=== PATIENT | male | born 1955 | race Caucasian/White ===

== ENCOUNTER 2019-04-24 12:00 | Outpatient (CLI) | payer MEDICAID, SELFPAY ==
--- NOTE | 2019-04-24 12:14 | CT_ITS ---
WS: [id number] CT ABDOMEN WITH CONTRAST HISTORY: WEIGHT LOSS/ELEVATED LIVER ENZYMES Contiguous single phase 5 mm axial imaging performed to the abdomen. Oral contrast has not been provi ded. Coronal and sagittal reformats are submitted. All CT scans at [facility] use at leas t one of these dose optimization techniques: automated exposure control; mA and/or kV adjustment per patient size (includes targeted exams where dose is matched to clinical indication); or iterative rec onstruction. CONTRAST: Omnipaque 300; 95 mL IV. DLP: 754.05 mGycm COMPARISON: 04/15/2016 Lower thorax: Marked emphysema at the lung bases. No pleural effusion. Heart size is normal. Small hi atal hernia. Liver: Again noted is a 9 mm hypodensity in the LEFT lobe of the liver which has been present on prio r studies. No metastatic lesions are identified. Gallbladder: Normal. Pancreas: Normal. Spleen: Normal size spleen with granulomata. Adrenals: Normal. Right kidney: Partial nephrectomy involving the RIGHT upper lobe. No recurrent mass or adenopathy. Left kidney: Stable hypodensity in the upper pole measures 8 mm. No solid mass or obstruction. Aorta: Mild atherosclerosis with no aneurysm. GI tract: GI tract within the abdomen is negative for acute obstruction or process. Postsurgical sutu res are noted in the proximal small bowel. Several small bowel loops are top normal size with no obst ruction. Previously described mass in the LEFT abdomen adjacent to the small bowel is no longer prese nt. No adenopathy or free fluid. Abdominal wall: No hernia. Visualized osseous structures: Degenerative disc disease at L5-S1. CT/CT abdomen w con* [id number] IMPRESSION: 1. Stable 8 mm hypodense nodule in the LEFT lobe of the liver over multiple pr ior examinations. 2. No bile duct dilatation. 3. Splenic granulomata. 4. Stable postsurgical changes upper pole RIGHT kidney.
[2019-04-24] MEDS: iohexol 300 mg/mL 100 mL Btl IV (12:52)
== END 2019-04-24 12:01 | disposition home or self-care (01) ==
LOC: RADWPI 12:07
PROVIDERS: Family Provider Internal Medicine; PCP Internal Medicine; Visit Provider Internal Medicine
DX: R63.4 Abnormal weight loss (principal); R74.8 Abnormal levels of other serum enzymes
CPT/HCPCS: 74160; Q9967

== ENCOUNTER → 2019-05-01 08:00 | Outpatient (BNVA) | payer MEDICAID, SELFPAY | PROVIDERS: Family Provider Internal Medicine; PCP Internal Medicine; Visit Provider Anesthesiology | DX: M47.27 Other spondylosis with radiculopathy, lumbosacral region (principal); M51.36 Other intervertebral disc degeneration, lumbar region; M47.896 Other spondylosis, lumbar region; M25.551 Pain in right hip; M50.30 Other cervical disc degeneration, unspecified cervical region; M47.892 Other spondylosis, cervical region; M25.511 Pain in right shoulder; F17.210 Nicotine dependence, cigarettes, uncomplicated; Z79.891 Long term (current) use of opiate analgesic | CPT/HCPCS: 99214 ==

== ENCOUNTER → 2019-09-05 09:30 | Outpatient (BNVA) | payer MEDICAID, SELFPAY | PROVIDERS: Family Provider Internal Medicine; PCP Internal Medicine; Visit Provider Nurse Practitioner | DX: M54.41 Lumbago with sciatica, right side (principal); M54.2 Cervicalgia; F17.210 Nicotine dependence, cigarettes, uncomplicated; Z79.891 Long term (current) use of opiate analgesic | CPT/HCPCS: 99213 ==

== ENCOUNTER 2019-09-18 13:01 | Outpatient (CLI) | payer MEDICAID, SELFPAY ==
--- NOTE | 2019-09-18 13:05 | CT_ITS ---
WS: [id number] LDCT LUNG CANCER SCREENING TECHNIQUE: Noncontrast CT of the chest with coronal and sagittal reformatted images. CLINICAL INFORMATION: NICOTINE DEPENDENCE COMPARISON: None. DLP: 94.92 mGy.cm DIvol: 2.[address] scans at [facility] use at least one of these dose optimization techniques: automat ed exposure control; mA and/or kV adjustment per patient size (includes targeted exams where dose is matched to clinical indication); or iterative reconstruction. FINDINGS: Nodular fibrosis in the lung apices. Moderate chronic emphysematous changes. A few calcified granulom as. No pulmonary nodules. No acute infiltrates. No pleural fluid. No mediastinal or hilar lymphadenop athy. Normal endobronchial tree. Adrenal glands are normal. Splenic granulomas. Small esophageal hiatal hernia. CT/CT lung screening [id number] IMPRESSION: LUNG-RADS: 1-Negative FOLLOW UP: 12 Month: Continue annual screening with LDCT
== END 2019-09-18 13:02 | disposition home or self-care (01) ==
LOC: RAD 13:02
PROVIDERS: Family Provider Internal Medicine; PCP Internal Medicine; Visit Provider Internal Medicine
DX: Z12.2 Encounter for screening for malignant neoplasm of respiratory organs (principal); F17.218 Nicotine dependence, cigarettes, with other nicotine-induced disorders
CPT/HCPCS: G0297

== ENCOUNTER → 2019-11-15 08:30 | Outpatient (BNVA) | payer MEDICAID, SELFPAY | PROVIDERS: Family Provider Internal Medicine; PCP Internal Medicine; Visit Provider Anesthesiology | DX: M54.42 Lumbago with sciatica, left side (principal); M54.41 Lumbago with sciatica, right side; M47.896 Other spondylosis, lumbar region; M51.36 Other intervertebral disc degeneration, lumbar region; M47.27 Other spondylosis with radiculopathy, lumbosacral region; M47.892 Other spondylosis, cervical region; M50.30 Other cervical disc degeneration, unspecified cervical region; F17.210 Nicotine dependence, cigarettes, uncomplicated; Z79.891 Long term (current) use of opiate analgesic | CPT/HCPCS: 99214 ==

== ENCOUNTER → 2020-01-21 08:28 | Outpatient (BNVA) | payer MEDICAID, SELFPAY | PROVIDERS: Family Provider Internal Medicine; PCP Internal Medicine; Visit Provider Anesthesiology | DX: M47.896 Other spondylosis, lumbar region (principal); M51.36 Other intervertebral disc degeneration, lumbar region; M47.27 Other spondylosis with radiculopathy, lumbosacral region; M47.892 Other spondylosis, cervical region; M50.30 Other cervical disc degeneration, unspecified cervical region; F17.210 Nicotine dependence, cigarettes, uncomplicated; Z79.891 Long term (current) use of opiate analgesic | CPT/HCPCS: 99214 ==

== ENCOUNTER → 2020-03-24 08:05 | Outpatient (BNVA) | payer MEDICAID, SELFPAY | PROVIDERS: Family Provider Internal Medicine; PCP Internal Medicine; Visit Provider Anesthesiology | DX: M47.896 Other spondylosis, lumbar region (principal); M51.36 Other intervertebral disc degeneration, lumbar region; M47.27 Other spondylosis with radiculopathy, lumbosacral region; M47.892 Other spondylosis, cervical region; M50.30 Other cervical disc degeneration, unspecified cervical region; F17.210 Nicotine dependence, cigarettes, uncomplicated; Z79.891 Long term (current) use of opiate analgesic | CPT/HCPCS: 99214 ==

== ENCOUNTER → 2020-05-19 08:04 | Outpatient (BNVA) | payer MEDICAID, SELFPAY | PROVIDERS: Family Provider Internal Medicine; PCP Internal Medicine; Visit Provider Anesthesiology | DX: G89.29 Other chronic pain (principal); M51.36 Other intervertebral disc degeneration, lumbar region; M47.896 Other spondylosis, lumbar region; M47.27 Other spondylosis with radiculopathy, lumbosacral region; M47.892 Other spondylosis, cervical region; M50.30 Other cervical disc degeneration, unspecified cervical region; F17.210 Nicotine dependence, cigarettes, uncomplicated; Z79.891 Long term (current) use of opiate analgesic | CPT/HCPCS: 99214 ==

== ENCOUNTER → 2020-07-16 08:35 | Outpatient (BNVA) | payer MEDICAID, SELFPAY | PROVIDERS: Family Provider Internal Medicine; PCP Internal Medicine; Visit Provider Anesthesiology | DX: G89.29 Other chronic pain (principal); M47.892 Other spondylosis, cervical region; M50.30 Other cervical disc degeneration, unspecified cervical region; M47.896 Other spondylosis, lumbar region; M51.36 Other intervertebral disc degeneration, lumbar region; M47.27 Other spondylosis with radiculopathy, lumbosacral region; F17.210 Nicotine dependence, cigarettes, uncomplicated; Z79.891 Long term (current) use of opiate analgesic | CPT/HCPCS: 99214 ==

== ENCOUNTER → 2020-09-18 10:16 | Outpatient (BNVA) | payer MEDICAID, SELFPAY | PROVIDERS: Family Provider Internal Medicine; PCP Internal Medicine; Visit Provider Nurse Practitioner | DX: M54.5 Low back pain (principal); M47.892 Other spondylosis, cervical region; M50.30 Other cervical disc degeneration, unspecified cervical region; M47.896 Other spondylosis, lumbar region; M51.36 Other intervertebral disc degeneration, lumbar region; M47.27 Other spondylosis with radiculopathy, lumbosacral region; F17.210 Nicotine dependence, cigarettes, uncomplicated; Z79.891 Long term (current) use of opiate analgesic | CPT/HCPCS: 99213 ==

== ENCOUNTER → 2020-11-19 09:43 | Outpatient (BNVA) | payer MEDICAID, SELFPAY | PROVIDERS: Family Provider Internal Medicine; PCP Internal Medicine; Visit Provider Nurse Practitioner | DX: M47.892 Other spondylosis, cervical region (principal); M50.30 Other cervical disc degeneration, unspecified cervical region; M47.896 Other spondylosis, lumbar region; M51.36 Other intervertebral disc degeneration, lumbar region; M54.16 Radiculopathy, lumbar region; F17.210 Nicotine dependence, cigarettes, uncomplicated; Z79.891 Long term (current) use of opiate analgesic | CPT/HCPCS: 99213 ==

== ENCOUNTER → 2021-01-13 08:24 | Outpatient (BNVA) | payer MEDICAID, SELFPAY | PROVIDERS: Family Provider Internal Medicine; PCP Internal Medicine; Visit Provider Anesthesiology | DX: G89.29 Other chronic pain (principal); M47.896 Other spondylosis, lumbar region; M51.36 Other intervertebral disc degeneration, lumbar region; M47.892 Other spondylosis, cervical region; M50.30 Other cervical disc degeneration, unspecified cervical region; M47.27 Other spondylosis with radiculopathy, lumbosacral region; F17.200 Nicotine dependence, unspecified, uncomplicated; Z79.891 Long term (current) use of opiate analgesic; Z71.6 Tobacco abuse counseling | CPT/HCPCS: 99214 ==

== ENCOUNTER → 2021-03-16 08:54 | Outpatient (BNVA) | payer MEDICAID, SELFPAY | PROVIDERS: Family Provider Internal Medicine; PCP Internal Medicine; Visit Provider Anesthesiology | DX: G89.29 Other chronic pain (principal); M47.896 Other spondylosis, lumbar region; M51.36 Other intervertebral disc degeneration, lumbar region; M47.27 Other spondylosis with radiculopathy, lumbosacral region; M47.892 Other spondylosis, cervical region; M50.30 Other cervical disc degeneration, unspecified cervical region; F17.200 Nicotine dependence, unspecified, uncomplicated; Z79.891 Long term (current) use of opiate analgesic | CPT/HCPCS: 99214 ==

== ENCOUNTER 2021-03-18 13:44 | Outpatient (CLI) | payer MEDICAID, SELFPAY ==
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
== END 2021-03-18 13:45 | disposition home or self-care (01) ==
LOC: RAD 13:46
PROVIDERS: PCP Internal Medicine; Visit Provider Internal Medicine
DX: Z12.2 Encounter for screening for malignant neoplasm of respiratory organs (principal); F17.218 Nicotine dependence, cigarettes, with other nicotine-induced disorders
CPT/HCPCS: 71271

== ENCOUNTER → 2021-04-13 09:20 | Outpatient (BNVA) | payer MEDICAID, SELFPAY | PROVIDERS: PCP Internal Medicine; Visit Provider Anesthesiology | DX: G89.29 Other chronic pain (principal); M50.30 Other cervical disc degeneration, unspecified cervical region; M47.896 Other spondylosis, lumbar region; F17.210 Nicotine dependence, cigarettes, uncomplicated; Z79.891 Long term (current) use of opiate analgesic | CPT/HCPCS: 99214 ==

== ENCOUNTER 2021-11-25 08:07 | Observation (INO) | payer MEDICARE, MEDICAID, SELFPAY ==
[2021-11-25] VITALS (14 sets, daily range): BP systolic 102–147; BP diastolic 58–88; PULSE 49–70; RESP 16–25; TEMP 36.4–36.7; O2SAT 91–97; BMI 26.9
[2021-11-25 08:31] LABS: Basophils # 0.1 10^3/uL (0.0-0.1); Basophils % 0.9 %; Eosinophils # 0.2 10^3/uL (0.0-0.8); Eosinophils % 2.9 %; Hemoglobin 15.3 g/dL (11.7-16.6); Lymphocytes # 1.4 10^3/uL (0.8-4.8); Lymphocytes % 24.5 %; Mean Corpuscular Hemoglobin 31.1 pg (28.0-34.0); Mean Corpuscular Volume 91.5 fl (80-94); Mean Platelet Volume 10.7 fL (7.4-10.4); Monocytes # 0.4 10^3/uL (0.2-0.9); Monocytes % 6.9 %; Neutrophils # 3.55 10^3/uL (1.8-7.7); Neutrophils % 64.6 %; Nucleated Red Blood Cells % 0 %; Platelet Count 205 10^3/cmm (130-400); Red Blood Count 4.92 10^6/uL (4.1-5.3); Red Cell Distribution Width 12.6 % (12.1-15.1); White Blood Count 5.5 10^3/uL (4.0-10.0)
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
--- NOTE | 2021-11-25 08:46 | ECG_ITS ---
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 Measurements Intervals [place] Rate: 50 P: 70 MN: 165 QRS: 71 QRSD: 93 T: 67 QT: 436 QTc: 398 Interpretive Statements SINUS BRADYCARDIA POSSIBLE RIGHT VENTRICULAR CONDUCTION DELAY [RSR (QR) IN V1/V2] Compared to ECG 11/25/2021 10:34:37 No significant changes Electronically Signed On 11-25-2021 20:45:29 CDT by Himanshu Deshpande M.D. [id number]
--- NOTE | 2021-11-25 08:51 | PC.NURSE ---
pt reports he took 324mg ASA prior to arrival, physician notified. verbal order received to cancel current ASA order
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
[2021-11-25 08:59] LABS: Alanine Aminotransferase 19 U/L (0-41); Albumin Level 4.2 g/dL (3.5-5.2); Alkaline Phosphatase 96 U/L (40-130); Anion Gap 14.1 (5-19); Aspartate Amino Transferase 22 U/L (0-40); Blood Urea Nitrogen 9 mg/dL (8-23); Calcium 8.9 mg/dL (8.5-10.5); Carbon Dioxide 25 mmol/L (22-29); Chloride 103 mmol/L (98-107); Globulin 2.4 g/dL (1.3-4.6); Glomerular Filtration Rate 84.7 mL/min (90-130); Glucose 131 mg/dL (65-115); Osmolality Calculated 286 mOsm/kg (285-295); Potassium 4.1 mmol/L (3.5-5.1); Sodium 138 mmol/L (136-145); Total Bilirubin 0.7 mg/dL (0.15-1.2); Total Protein 6.6 g/dL (6.6-8.7)
[2021-11-25 09:18] LABS: Troponin(5th) Baseline 8 ng/L (0-15)
--- NOTE | 2021-11-25 10:33 | ECG_ITS ---
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 Measurements Intervals [place] Rate: 52 P: 60 VA: 165 QRS: 60 QRSD: 93 T: 61 QT: 424 QTc: 397 Interpretive Statements SINUS BRADYCARDIA No previous ECG available for comparison Electronically Signed On 11-25-2021 20:49:12 CDT by Himanshu Deshpande M.D. [id number]
--- NOTE | 2021-11-25 10:34 | ECG_ITS ---
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 Measurements Intervals [place] Rate: 51 P: 61 NM: 164 QRS: 58 QRSD: 94 T: 58 QT: 430 QTc: 399 Interpretive Statements SINUS BRADYCARDIA Compared to ECG 11/25/2021 10:33:16 No significant changes Electronically Signed On 11-25-2021 20:49:26 CDT by Himanshu Deshpande M.D. [email or web address] [id number]
[2021-11-25 10:50] LABS: Troponin 5 2HR 7.28 ng/L (0-15)
[2021-11-25 11:14] LABS: Troponin 5 2HR Delta -0.72 ABS# (0-10)
--- NOTE | 2021-11-25 11:27 | ECG_ITS ---
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 Interpretive Statements NAME OF STUDY: LEXISCAN SESTAMIBI STRESS TEST INDICATION: Chest Pain PROCEDURE: At the baseline, the blood pressure was 119/79 mmHg, oxygen saturation 93% with a heart rate of 56 bpm. The electrocardiogram showed sinus bradycardia, normal axis with normal ST-T's. The Lexiscan was infused over a period of 20 seconds. A total of 0.4 milligrams of Lexiscan was infused. The stress phase was continued for a total of 5 minutes. Heart rate at the end of the stress phase was 71 bpm, oxygen saturation 94% with a blood pressure of 124/66 mmHg. The EKG at the peak infusion revealed sinus rhythm with no significant ST-T wave changes. The study was terminated protocol completion. Sestamibi was injected 20 seconds after the Lexiscan infusion. Blood pressure at the end of the recovery phase was 116/68 mmHg, oxygen saturation 91% with a heart rate of 65 beats per minute. CONCLUSION: 1. No significant EKG changes with the LexiScan infusion. 2. No LexiScan induced chest pain or cardiac arrhythmia. 3. Normal blood pressure and heart rate response. 4. Sestamibi/sestamibi perfusion scan pending; see separate report. Electronically Signed On 11-26-2021 12:24:57 CDT by Sarah Bueno M.D. [id number]
--- NOTE | 2021-11-25 11:27 | PM.HP ---
Providers/Chief Complaint Admitting Physician: Gabriel Villavicencio MD Primary Care Provider: Coby Marin MD Chief Complaint: r side pain History of Present Illness Clifton Gunter is a 66 year old male Medications/Allergies Home Medications Medication Instructions Recorded Confirmed Last Taken Type acetaminophen 325 mg capsule 325 mg PO QID PRN Pain 11/25/21 11/25/21 11/24/21 History (Tylenol) albuterol sulfate 90 mcg/actuation 2 puff inhalation 6XD PRN 11/25/21 11/25/21 Unknown History aerosol inhaler Shortness Of Breath Or Wheezing esomeprazole magnesium 20 mg 20 mg PO DAILY 11/25/21 11/25/21 11/24/21 History capsule,delayed release (Nexium) fexofenadine 60 mg tablet 60 mg PO BID 11/25/21 11/25/21 11/24/21 History Allergies Allergy/AdvReac Type Severity Reaction Status Date / Time No Known Allergies Allergy Verified 11/25/21 09:34 PFSH Acute PFSH: Medical History Chronic neck and back pain DDD (degenerative disc disease), cervical DDD (degenerative disc disease), lumbar Encounter for long-term opiate analgesic use History of kidney cancer Other spondylosis with radiculopathy, lumbosacral region Other spondylosis, cervical region Other spondylosis, lumbar region Smoker unmotivated to quit Surgical History Hx of circumcision Hx of partial nephrectomy Family History Other Cancer Social History Smoking and tobacco status: current every day smoker cigarettes Packs smoked per day: 1 Years cigarettes smoked: 50 Alcohol intake: never History of recent travel: No Vitals/I&O/Wt Last Vital Signs Temp 98.0 F 11/25/21 08:09 Pulse 65 11/25/21 08:09 Resp 16 11/25/21 08:09 BP 137/76 11/25/21 08:09 Pulse Ox 97 11/25/21 08:09 O2 Del Method 11/25/21 08:09 Weight last 48 hrs Weight 95.254 kg Data : 11/25/21 08:21 11/25/21 08:21 Coding Level of Care Code Acute Creche Attendant for Joe Champion
[2021-11-25 12:02] LABS: Thyroid Stimulating Hormone 3.61 uIU/mL (0.27-4.20)
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
[2021-11-25 13:14] LABS: Add Urine Microscopic? NO; Charge for UA Resulting for Rev
[2021-11-25 13:29] LABS: Bilirubin Urine 1+ (Negative); Blood Urine Neg (Negative); Glucose Urine UA Norm (Normal); Ketones Urine Negative (Negative); Leukocyte Esterase Urine Negative (Negative); Nitrate Urine Negative (Negative); Protein Urine Neg (Negative); Specific Gravity, Urine 1.005 (1.005-1.030); Urine Appearance Clear (CLEAR); Urine Color Yellow (Yellow); Urobilinogen Urine 1 mg/dL (Negative); pH Urine 7 (5-7)
[2021-11-25 14:36] LABS: Troponin 5 6HR 6.79 ng/L (0-15)
[2021-11-25 14:51] LABS: Troponin 5 6HR Delta -1.21 ng/L (0-12)
--- NOTE | 2021-11-25 15:06 | USCV_ITS ---
Clifton Gunter Age: 66 Gender: M : 1955 Exam Date: 11/25/2021 15:44 Ordering Phys: Gabriel Villavicencio MD Technologist: Shyam Valdovinos Exam Location: [facility] [place] Indication: Chest pain BP: 134 / 82 HR: 49 Rhythm: Sinus Technical Quality: Adequate MEASUREMENTS (Male / Female) Normal Values 2D ECHO LV Diastolic Diameter PLAX 5.2 cm 4.2 - 5.9 / 3.9 - 5.3 cm LV Systolic Diameter PLAX 3.2 cm IVS Diastolic Thickness 0.7 cm 0.6 - 1.0 / 0.6 - 0.9 cm IVS Systolic Thickness 1.1 cm LVPW Diastolic Thickness 1.3 cm 0.6 - 1.0 / 0.6 - 0.9 cm LVPW Systolic Thickness 1.7 cm LVOT Diameter 2.0 cm LV Ejection Fraction 2D Teich 67.8 % LV Ejection Fraction MOD 2C 66.5 % LV Ejection Fraction 2C AL 66.2 % LA Diameter 3.5 cm LA Width 3.4 cm LA Height 5.3 cm RA Width 4.0 cm RA Height 4.7 cm Aorta at Sinotubular Diameter 2.9 cm IVC Diameter 1.7 cm M-MODE Aortic Annulus Diameter 2.6 cm LA Ao Ratio MM 1.4 MV E Point Septal Separation 0.4 cm DOPPLER AV Peak Velocity 150.0 cm/s LVOT Peak Velocity 103.0 cm/s AV Area Cont Eq vti 2.3 cm squared AV Area Cont Eq pk 2.2 cm squared MV Peak Velocity 83.0 cm/s MV Area PHT 5.6 cm squared Mitral E to A Ratio 0.9 MV E' Velocity 36.5 cm/s Mitral E to MV E' Ratio 5.7 Mitral E to LV E' Lateral Ratio 4.5 Mitral E to LV E' Septal Ratio 7.6 TR Peak Velocity 283.5 cm/s TR Peak Gradient 32.1 mmHg TR Mean Velocity 210.0 cm/s TR Mean Gradient 18.3 mmHg TR Velocity Time Integral 70.7 cm Right Atrial Pressure 3.0 mmHg Pulmonary Artery Systolic Pressu 35.1 mmHg PV Peak Velocity 87.0 cm/s RV Acceleration Time 0.1 s RV Ejection Time 0.3 s RV AcT/ET 0.4 FINDINGS Left Ventricle Normal left ventricular size, systolic function and wall thickness, with no regional wall motion abnormalities. Left ventricular ejection fraction is estimated at 63 %. Normal diastolic function. Right Ventricle Normal right ventricular size and systolic function. Right ventricular systolic pressure 32 mmHg. Right Atrium Normal right atrial size. Left Atrium Normal left atrial size. Mitral Valve Structurally normal mitral valve. No mitral valve stenosis. No mitral valve regurgitation. Aortic Valve Aortic valve not well visualized. No aortic valve stenosis. No aortic valve regurgitation. Tricuspid Valve Structurally normal tricuspid valve. No tricuspid valve stenosis. Trace tricuspid valve regurgitation. Pulmonic Valve No pulmonary valve stenosis. Trace pulmonary valve regurgitation. Pericardium No pericardial effusion. Aorta Normal size aortic root and proximal ascending aorta. IVC Normal IVC dimension with >50% respiratory change of the inferior vena cava. CONCLUSIONS 1. Normal left ventricular size, systolic function and wall thickness, with no regional wall motion abnormalities. Left ventricular ejection fraction is estimated at 63 %. Normal diastolic function. 2. Normal right ventricular size and systolic function. 3. Pulmonary artery pressure estimated at 32 mmHg. 4. No prior similar studies to compare. Sarah Bueno MD (Electronically Signed) Final Date: 25 November 2021 17:13 S
[2021-11-25] MEDS: enoxaparin 40 mg/0.4 mL Syringe SUBCUT (16:19)
[2021-11-25] MEDS: fexofenadine 60 mg Tablet PO (17:20)
[2021-11-25] MEDS: pantoprazole DR 40 mg Tablet PO (17:21)
[2021-11-26] VITALS: BP 107/72; PULSE 56; RESP 17; TEMP 36.6; O2SAT 95
[2021-11-26 04:00] VITALS: BP 126/70; PULSE 56; RESP 18; TEMP 36.6; O2SAT 94
[2021-11-26 05:49] LABS: Basophils # 0.1 10^3/uL (0.0-0.1); Basophils % 0.8 %; Eosinophils # 0.2 10^3/uL (0.0-0.8); Eosinophils % 3.2 %; Hemoglobin 15.2 g/dL (11.7-16.6); Lymphocytes # 1.8 10^3/uL (0.8-4.8); Lymphocytes % 30.3 %; Mean Corpuscular Hemoglobin 30.6 pg (28.0-34.0); Mean Corpuscular Volume 92.6 fl (80-94); Mean Platelet Volume 11.3 fL (7.4-10.4); Monocytes # 0.6 10^3/uL (0.2-0.9); Monocytes % 9.2 %; Neutrophils # 3.37 10^3/uL (1.8-7.7); Neutrophils % 56.2 %; Nucleated Red Blood Cells % 0 %; Platelet Count 190 10^3/cmm (130-400); Red Blood Count 4.97 10^6/uL (4.1-5.3); Red Cell Distribution Width 12.8 % (12.1-15.1)
[2021-11-26 06:09] LABS: Anion Gap 13.1 (5-19); Blood Urea Nitrogen 9 mg/dL (8-23); Carbon Dioxide 28 mmol/L (22-29); Chloride 104 mmol/L (98-107); Chol HDL Ratio 5.71 mg/dL (1.0-5.00); Cholesterol 194 mg/dL (0-200); Glucose 98 mg/dL (65-115); HDL Cholesterol 34 mg/dL (60-100); LDL Cholesterol Calculated 132 mg/dL (50-129); LDL HDL Ratio 3.88 RATIO (0.00-3.22); Osmolality Calculated 291 mOsm/kg (285-295); Potassium 4.1 mmol/L (3.5-5.1); Sodium 141 mmol/L (136-145); Triglycerides 139 mg/dL (0-150)
--- NOTE | 2021-11-26 07:00 | NMCV_ITS ---
NM sameer perf SPECT r/s* [id number] Clifton Gunter Age: 66 Gender: M : 1955 Exam Date: 11/26/2021 07:16 Ordering Phys: Gabriel Villavicencio MD Technologist: LULU Etienne Exam Location: [facility] Indications: CHEST PAIN STRESS TEST Please [facility] for [facility] IMAGE PROTOCOL Rest/Stress 1 Lexiscan Day Radiopharmaceutical Dose (mCi) Administration Site Administered by Rest: Tc-99m 10.7 IV LULU David Sestamibi Stress:Tc-99m 32.8 IV LULU David Sestamibi Rest: 26-Nov-2021 60 Discovery 630 Stress: 26-Nov-2021 30 Discovery 630 0.4mg Lexiscan. Images obtained in supine and prone position. SPECT RESULTS Technical Quality: Excellent Raw Data Analysis: Normal Image Corrections: No attenuation or motion correction applied Summed Stress Score: 3 Summed Rest Score: 7 Summed Difference Score: 0 PERFUSION FINDINGS Small size perfusion abnormality of mild to moderate severity of apical septal, apical lateral, apical anterior, apical inferior and apical gauthier on rest images with improved tracer uptake in apical septal inferior and lateral gauthier on stress images. This suggestive of attenuation artifact. FUNCTIONAL RESULTS (calculated via Gated SPECT) Stress Image LV EF (%): 54 Stress EDV (mL):127 TID: 1 Stress ESV (mL):59 FUNCTIONAL FINDINGS: The left ventricle is normal in size. Transient Ischemia Dilatation of 1. The left ventricular ejection fraction is low normal with a value of 54%. There is normal left ventricular wall thickening. IMPRESSIONS 1. Myocardial perfusion imaging is normal. Attenuation artifact in apical gauthier. 2. Overall left ventricular systolic function is low normal without regional wall motion abnormalities, LVEF=54%. 3. No coronary ischemia based on the study. 4. No EKG changes with Lexiscan infusion. Refer to separate report for details. Sarah Bueno MD (Electronically Signed) Final Date: 26 November 2021 12:31 S
[2021-11-26 08:00] VITALS: PULSE 72; RESP 18; O2SAT 99
[2021-11-26] MEDS: regadenoson 0.4 Mg/5 ml Syringe IVP (10:08)
[2021-11-26 10:18] VITALS: BP 116/65; PULSE 65
[2021-11-26] MEDS: pantoprazole DR 40 mg Tablet PO (11:54)
[2021-11-26] MEDS: fexofenadine 60 mg Tablet PO (11:54)
--- NOTE | 2021-11-26 12:37 | P.DS_ITS ---
Discharge Providers Date of Admission: 11/25/21 15:06 Date of Discharge: November 26, 2021 Attending Provider at Admission: Gabriel Villavicencio MD Attending Provider at Discharge: Gabriel Villavicencio MD Primary Care Provider: Coby Marin MD Diagnoses at Discharge Discharge Diagnosis (1) Chest pain: Status: Acute (2) COPD (chronic obstructive pulmonary disease): Status: Acute (3) Tobacco dependency: Status: Acute Reason for Visit Reason for Visit: r side pain Hospital Course Hospital Course Clifton is a 66-year-old white male who presented to the hospital with complaints of chest discomfort occurring in the morning, lower chest, severe and lasting approximately 30 minutes. In the emergency department, troponin was negative. EKG did not show any acute changes. Echocardiogram was performed which showed normal ejection fraction, normal right ventricular systolic function and pulmonary artery pressure of 32. Nuclear stress test the following day did not demonstrate any reversible ischemia. He was counseled on limitations of nuclear stress testing, and the need to follow-up with his primary care provider. For any recurrent chest discomfort he was instructed to return to the emergency department. He was told to stop smoking. Protonix will be given 40 mg twice daily as there was some concern of GI component considering his past history of reflux. He can reduce to once daily in approximately 2 to 4 weeks. Physical Exam Narrative: Regular rateGeneral exam no distress Neck is supple no lymphadenopathy thyromegaly Cardiovascular rhythm without murmur Lungs clear no wheezing or crackles Abdomen is soft nontender positive bowel sounds Extremities no cyanosis clubbing or edema Skin without rash Discharge Data Studies Completed and Pending Completed Studies During Hospitalization Category Date Time Status Sestamibi Stress Test Request Stat Exams 11/25/21 11:27 Completed XR chest 1V portable [id number] Stat Exams 11/25/21 08:46 Completed NM sameer perf SPECT r/s* [id number] Routine Nuc Med 11/26/21 07:00 Completed CV. echo complete* [id number] Routine Ultrasound 11/25/21 15:06 Completed Radiology Impressions Chest X-Ray 11/25/21 08:46 Impression: Old granulomatous disease. Laboratory Results WBC 6.0 10^3/uL (4.0-10.0) 11/26/21 04:38 RBC 4.97 10^6/uL (4.1-5.3) 11/26/21 04:38 Hgb 15.2 g/dL (11.7-16.6) 11/26/21 04:38 Hct 46.0 % (42.0-52.0) 11/26/21 04:38 MCV 92.6 fl (80-94) 11/26/21 04:38 MCH 30.6 pg (28.0-34.0) 11/26/21 04:38 MCHC 33.0 g/dL (30.0-36.0) 11/26/21 04:38 RDW 12.8 % (12.1-15.1) 11/26/21 04:38 Plt Count 190 10^3/cmm (130-400) 11/26/21 04:38 MPV 11.3 fL (7.4-10.4) H 11/26/21 04:38 Neut % (Auto) 56.2 % 11/26/21 04:38 Lymph % (Auto) 30.3 % 11/26/21 04:38 [place] % (Auto) 9.2 % 11/26/21 04:38 Eos % (Auto) 3.2 % 11/26/21 04:38 Baso % (Auto) 0.8 % 11/26/21 04:38 Neut # (Auto) 3.37 10^3/uL (1.8-7.7) 11/26/21 04:38 Lymph # (Auto) 1.8 10^3/uL (0.8-4.8) 11/26/21 04:38 [place] # (Auto) 0.6 10^3/uL (0.2-0.9) 11/26/21 04:38 Eos # (Auto) 0.2 10^3/uL (0.0-0.8) 11/26/21 04:38 Baso # (Auto) 0.1 10^3/uL (0.0-0.1) 11/26/21 04:38 Nucleated RBC % (auto) 0 % 11/26/21 04:38 Nucleated RBCs # 0.0 /100WBC 11/26/21 04:38 Sodium 141 mmol/L (136-145) 11/26/21 04:38 Potassium 4.1 mmol/L (3.5-5.1) 11/26/21 04:38 Chloride 104 mmol/L (98-107) 11/26/21 04:38 Carbon Dioxide 28 mmol/L (22-29) 11/26/21 04:38 Anion Gap 13.1 (5-19) 11/26/21 04:38 BUN 9 mg/dL (8-23) 11/26/21 04:38 Creatinine 0.8 mg/dL (0.7-1.2) 11/26/21 04:38 GFR Calculation 97.0 mL/min (90-130) 11/26/21 04:38 Glucose 98 mg/dL (65-115) 11/26/21 04:38 Calculated Osmolality 291 mOsm/kg (285-295) 11/26/21 04:38 Calcium 9.0 mg/dL (8.5-10.5) 11/26/21 04:38 Total Bilirubin 0.7 mg/dL (0.15-1.2) 11/25/21 08:21 AST 22 U/L (0-40) 11/25/21 08:21 ALT 19 U/L (0-41) 11/25/21 08:21 Alkaline Phosphatase 96 U/L (40-130) 11/25/21 08:21 Troponin T Baseline 8 ng/L (0-15) 11/25/21 08:21 Troponin T 120 Minute 7.28 ng/L (0-15) 11/25/21 10:11 Delta Troponin T -0.72 ABS# (0-10) L 11/25/21 10:11 Troponin T Hi Sens 6Hr 6.79 ng/L (0-15) 11/25/21 14:08 Troponin T Hi Sens 6Hr Delta -1.21 ng/L (0-12) L 11/25/21 14:08 Total Protein 6.6 g/dL (6.6-8.7) 11/25/21 08:21 Albumin 4.2 g/dL (3.5-5.2) 11/25/21 08:21 Globulin 2.4 g/dL (1.3-4.6) 11/25/21 08:21 Triglycerides 139 mg/dL (0-150) 11/26/21 04:38 Cholesterol 194 mg/dL (0-200) 11/26/21 04:38 LDL Cholesterol, Calc 132 mg/dL (50-129) H 11/26/21 04:38 HDL Cholesterol 34 mg/dL (60-100) L 11/26/21 04:38 LDL/HDL Ratio 3.88 RATIO (0.00-3.22) H 11/26/21 04:38 Cholesterol/HDL Ratio 5.71 mg/dL (1.0-5.00) H 11/26/21 04:38 TSH 3.61 uIU/mL (0.27-4.20) 11/25/21 08:21 Urine Color Yellow (Yellow) 11/25/21 11:42 Urine Appearance Clear (CLEAR) 11/25/21 11:42 Urine pH 7 (5-7) 11/25/21 11:42 Ur Specific [place] 1.005 (1.005-1.030) 11/25/21 11:42 Urine Protein Neg (Negative) 11/25/21 11:42 Urine Glucose (UA) Norm (Normal) 11/25/21 11:42 Urine Ketones Negative (Negative) 11/25/21 11:42 Urine Blood Neg (Negative) 11/25/21 11:42 Urine Nitrate Negative (Negative) 11/25/21 11:42 Urine Bilirubin 1+ (Negative) H 11/25/21 11:42 Urine Urobilinogen 1 mg/dL (Negative) H 11/25/21 11:42 Ur Leukocyte Esterase Negative (Negative) 11/25/21 11:42 Vitals Last Vital Signs Temp 97.8 F 11/26/21 04:00 Pulse 65 11/26/21 10:18 Resp 18 11/26/21 08:00 BP 116/65 11/26/21 10:18 Pulse Ox 99 11/26/21 08:00 O2 Del Method 11/26/21 08:00 Discharge Plan Discharge Patient Disposition: Home Condition: Stable Prescriptions: New pantoprazole 40 mg Tablet,Delayed Release (Dr/Ec) 40 mg PO BID Qty: 60 0RF Continued albuterol sulfate 90 mcg/actuation Hfa Aerosol Inhaler 2 puff INHALATION 6XD PRN (Reason: Shortness Of Breath Or Wheezing) Karma 60 mg Tablet 60 mg PO BID Tylenol 325 mg Capsule 325 mg PO QID PRN (Reason: Pain) Discontinued Nexium 20 mg Capsule,Delayed Release(Dr/Ec) 20 mg PO DAILY Discharge Orders: Discharge Order (Routine); Ordered 11/26/21 Ordered By: Gabriel Villavicencio Referrals: Coby Marin MD [Primary Care Provider] - 4-7 days Discharge Diet: Regular Discharge Activity: Increase activity as tolerated Patient Instructions: Opioid Safety Activity Restrictions/Additional Instructions: No anti-inflammatories Stop smoking If any recurrent chest pain read present Follow-up with your primary care provider 4 to 7 days Discharge Attestations Time Spent in Discharge Care*: greater than 30 min Quality Metrics Clinical Quality Measures [ No reported AMI, CVA or VTE this stay] Coding Level of Care Code Acute Chg [facility] note Diagnoses Chest pain R07.9 COPD (chronic obstructive pulmonary disease) J44.9 Tobacco dependency F17.200
--- NOTE | 2021-11-26 15:13 | PC.NURSE ---
Discharge Note Patient discharged to home via private vehicle accompanied by spouse. 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 Mobile pharmacy medications and/or prescriptions provided. Belongings/home medications returned.
[2021-11-26 15:19] VITALS: BP 116/65; PULSE 65
== END 2021-11-26 15:20 | disposition home or self-care (01) ==
LOC: ER 10:50 → MEDSURG 13:54
PROVIDERS: Admitting Provider Internal Medicine; Emergency Provider Family Medicine; PCP Internal Medicine; Visit Provider Internal Medicine
DX: R07.89 Other chest pain (principal); J44.9 Chronic obstructive pulmonary disease, unspecified; K21.9 Gastro-esophageal reflux disease without esophagitis; Z85.528 Personal history of other malignant neoplasm of kidney; E78.5 Hyperlipidemia, unspecified; F17.210 Nicotine dependence, cigarettes, uncomplicated
CPT/HCPCS: 36415; 71045; 78452; 80048; 80053; 80061; 81003; 84443; 84484; 85025; 93005; 93017; 93306; 96372; 99285; A9500; G0378; J1650; J2785

== ENCOUNTER → 2021-12-20 13:48 | Outpatient (BNVA) | payer MEDICARE, MEDICAID, SELFPAY | PROVIDERS: PCP Internal Medicine; Visit Provider Surgery | DX: K21.9 Gastro-esophageal reflux disease without esophagitis (principal); K22.70 Barrett's esophagus without dysplasia | CPT/HCPCS: 99203 ==

== ENCOUNTER 2021-12-24 08:14 | Day surgery (SDC) | payer MEDICARE, MEDICAID, SELFPAY ==
[2021-12-21 10:24] VITALS: BMI 28.0
[2021-12-24 08:46] VITALS: BP 132/77; PULSE 60; RESP 18; TEMP 36.8; O2SAT 96
[2021-12-24] MEDS: sodium chloride 0.9% 1,000 ML 30 ML IV (08:51)
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
--- NOTE | 2021-12-24 09:56 | W.PM.OPSUD ---
Surgery/Procedure H&P Update DATE OF PROCEDURE: December 24, 2021 DATE H&P PERFORMED: 12/20/21 PLANNED PROCEDURE: Operation Date: 12/24/21 09:45 Proposed Procedures p EGD [id number],K22.70,K21.9(Not Applicable) - Yoandy Rivera DO
[2021-12-24 10:17] VITALS: BP 104/67; PULSE 58; RESP 20; TEMP 36.4; O2SAT 93
[2021-12-24 10:23] VITALS: BP 105/66; PULSE 53; RESP 18; O2SAT 93
[2021-12-24 10:32] VITALS: BP 113/62; PULSE 61; RESP 18; O2SAT 95
--- NOTE | 2021-12-24 14:01 | ANE.PACU2 ---
Inpatient post-anesthesia follow up: Airway intact: Yes Vital signs: Temperature 97.6 F Pulse Rate 61 Respiratory Rate 18 Blood Pressure 113/62 Pulse Oximetry 95 Oxygen Delivery Me thod Room Air Oxygen Flow Rate 3 Fraction of Inspir ed Oxygen Hydration adequate: Yes Nausea and vomiting: No Pain level: 1 Mental status: Baseline
== END 2021-12-24 10:55 | disposition home or self-care (01) ==
PROVIDERS: PCP Internal Medicine; Visit Provider Surgery
PROC: 0DJ08ZZ Inspection of Upper Intestinal Tract, Via Natural or Artificial Opening Endoscopic (ICD-10-PCS; CPT 43235; principal; 2021-12-24 09:45)
DX: K22.70 Barrett's esophagus without dysplasia (principal); K21.9 Gastro-esophageal reflux disease without esophagitis; K44.9 Diaphragmatic hernia without obstruction or gangrene; K29.70 Gastritis, unspecified, without bleeding; F17.210 Nicotine dependence, cigarettes, uncomplicated; J44.9 Chronic obstructive pulmonary disease, unspecified; G47.30 Sleep apnea, unspecified; Z85.528 Personal history of other malignant neoplasm of kidney; E78.5 Hyperlipidemia, unspecified
CPT/HCPCS: 43239; 88305; J2704; J7030

== ENCOUNTER → 2022-01-11 09:29 | Outpatient (BNVA) | payer MEDICARE, MEDICAID, SELFPAY | PROVIDERS: PCP Internal Medicine; Visit Provider Surgery | DX: Z09 Encounter for follow-up examination after completed treatment for conditions other than malignant neoplasm (principal); K22.70 Barrett's esophagus without dysplasia | CPT/HCPCS: 99212 ==

== ENCOUNTER 2022-07-15 07:13 | Outpatient (CLI) | payer MEDICARE, MEDICAID, SELFPAY ==
--- NOTE | 2022-07-15 07:25 | CT_ITS ---
WS: [id number] LDCT LUNG CANCER SCREENING TECHNIQUE: Noncontrast CT of the chest with coronal and sagittal reformatted images. CLINICAL INFORMATION: HX OF TOBACCO USE COMPARISON: March 18, 2021 DLP: 99.69 mGy.cm DIvol: Mean CTDIvol: 1.70 (mGy) All CT scans at [facility] use at least one of these dose optimization techniques: automat ed exposure control; mA and/or kV adjustment per patient size (includes targeted exams where dose is matched to clinical indication); or iterative reconstruction. FINDINGS:Slight spiculateda lesion in the LEFT upper lobe near the lung apex measuring 12 mm with mary e surrounding hazy infiltrate. Recommend 3 month follow-up. This may be inflammatory but is indetermi moustapha. This is new from previous. Additional 4 and 5 mm new hazy nodules in the LEFT upper lobe anteri hansel with some surrounding infiltrate likely inflammatory. The small nodule about the LEFT hilum new uring 6 mm. Normal caliber thoracic aorta. Normal descending thoracic aorta. No mediastinal or hilar lymphadenopa thy. No axillary lymphadenopathy. Slight adrenal glands are normal. Splenic granulomas. Small esophag eal hiatal hernia.. Splenic granulomas. Moderate chronic emphysematous changes. CT/CT lung screening [id number] IMPRESSION:Slight spiculated lesion in the LEFT upper lobe near the lung apex m easuring 12 mm with some surrounding hazy infiltrate. Recommend 3 month follow- up. This is new from previous. LUNG-RADS: 4A-Probably Suspicious FOLLOW UP: 3 Month LDCT
== END 2022-07-15 07:14 | disposition home or self-care (01) ==
LOC: RAD 07:15
PROVIDERS: PCP Internal Medicine; Visit Provider Internal Medicine
DX: Z12.2 Encounter for screening for malignant neoplasm of respiratory organs (principal); Z87.891 Personal history of nicotine dependence
CPT/HCPCS: 71271

== ENCOUNTER 2022-09-07 11:00 | Outpatient (CLI) | payer MEDICARE, MEDICAID, SELFPAY ==
[2022-09-07] MEDS: iohexol 350 mg/mL 500 mL Btl (per mL) IV (11:42)
--- NOTE | 2022-09-07 11:55 | CT_ITS ---
WS: [id number] CT CHEST TECHNIQUE: Contrast enhanced CT of the chest with coronal and sagittal reformatted images. CLINICAL INFORMATION: FOLLOW UP LUNG NODULE COMPARISON: CT July 15, 2022 DLP: [address] scans at [facility] use at least one of these dose optimization techniques: automated e xposure control; mA and/or kV adjustment per patient size (includes targeted exams where dose is matc hed to clinical indication); or iterative reconstruction. FINDINGS:Previously described slightly spiculated lesion LEFT upper lobe appears to have resolved in the antrum. This was most likely inflammatory. Fibrosis in the lung apices. Tree-in-bud nodular infiltrates in the LEFT lower lobe laterally progressed compared to previous like ly infectious or inflammatory. Moderate chronic emphysematous changes. Normal caliber thoracic aorta. No mediastinal or hilar lymphadenopathy. No axillary lymphadenopathy. Adrenal glands are normal. Splenic granulomas. Small esophageal hiatal hernia. CT/CT chest w con* [id number] IMPRESSION: 1. Previously described slightly spiculated lesion LEFT upper lobe appears to have resolved in the interim. 2. Inflammatory or infectious tree-in-bud type nodular infiltrates in the LEFT lower lobe laterally progressed compared to previous. 3. Moderate chronic emphysematous changes. 4. Small esophageal hiatal hernia.
== END 2022-09-07 11:01 | disposition home or self-care (01) ==
LOC: RAD 11:04
PROVIDERS: PCP Internal Medicine; Visit Provider Internal Medicine
DX: J44.9 Chronic obstructive pulmonary disease, unspecified (principal); R91.1 Solitary pulmonary nodule; K44.9 Diaphragmatic hernia without obstruction or gangrene
CPT/HCPCS: 71260; Q9967

== ENCOUNTER 2023-08-25 10:50 | Outpatient (CLI) | payer MEDICARE, MEDICAID, SELFPAY ==
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
== END 2023-08-25 10:51 | disposition home or self-care (01) ==
LOC: RAD 10:50
PROVIDERS: PCP Internal Medicine; Visit Provider Internal Medicine
DX: F17.210 Nicotine dependence, cigarettes, uncomplicated (principal); R91.8 Other nonspecific abnormal finding of lung field; K44.9 Diaphragmatic hernia without obstruction or gangrene
CPT/HCPCS: 71271

== ENCOUNTER 2024-03-26 11:00 | Outpatient (CLI) | payer MEDICARE, MEDICAID, SELFPAY | END 2024-03-26 11:01 | disposition home or self-care (01) | LOC: RT 11:01 | PROVIDERS: PCP Internal Medicine; Visit Provider Internal Medicine | DX: J44.9 Chronic obstructive pulmonary disease, unspecified (principal) | CPT/HCPCS: 94010; 94726; 94729 ==

== ENCOUNTER 2024-09-20 09:56 | Outpatient (CLI) | payer MEDICARE, MEDICAID, SELFPAY ==
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
== END 2024-09-20 09:57 | disposition home or self-care (01) ==
LOC: RAD 09:57
PROVIDERS: PCP Internal Medicine; Visit Provider Internal Medicine
DX: Z12.2 Encounter for screening for malignant neoplasm of respiratory organs (principal); J84.10 Pulmonary fibrosis, unspecified; F17.218 Nicotine dependence, cigarettes, with other nicotine-induced disorders
CPT/HCPCS: 71271